=== PATIENT | male | born 1960 | race Two or more races ===

== ENCOUNTER 2022-07-26 09:12 | Outpatient (OUT) | payer OTHER, SELFPAY ==
--- NOTE | 2022-07-26 09:32 | XR_ITS ---
[address] [address] Patient Name: TOVA YOON MRN: [id number] date: 1960 Sex: M Assigned Patient Location: LAB Current Patient Location: LAB Accession/Order Number: [id number] Exam Date: 07/26/2022 09:40 Report Date: 07/26/2022 10:36 At the request of: SHAIKH MARJAN Procedure: XR lumbar spine 2-3V EXAM: XR lumbar spine 2-3V HISTORY: Low Back Pain M54.50 COMPARISON: None. TECHNIQUE: 3 views Findings/impression: Satisfactory alignment. Maintained vertebral body heights. Multilevel endplate degenerative changes, disc disease, and facet arthropathy of L3-S1. No acute fracture or subluxation. Scattered calcified atherosclerotic disease of aorta. Electronically authenticated by: LINDA SALMERON Date: 07/26/2022 10:36
[2022-07-26 09:35] LABS: Basophils Absolute Auto 0.1 10^3/uL (0.0-0.1); Basophils Percent Auto 1.2 % (0.2-2.0); Eosinophils Absolute Auto 0.6 10^3/uL (0.0-0.7); Eosinophils Percent Auto 10.8 % (0.9-7.0); Hematocrit 54.5 % (42.0-54.0); Hemoglobin 18.6 g/dL (14.0-18.0); Immature Granulocytes Abs Auto 0.02 10^3/uL (0.00-0.03); Immature Granulocytes Pct Auto 0.3 % (0.0-0.5); Lymphocytes Absolute Auto 0.9 10^3/uL (1.2-3.8); Lymphocytes Percent Auto 14.8 % (20.5-60.0); Mean Corpuscular HGB Conc 34.1 g/dL (29.9-35.2); Mean Corpuscular Hemoglobin 30.1 pg (25.9-34.0); Mean Corpuscular Volume 88.3 fL (80.0-94.0); Mean Platelet Volume 9.9 fL (9.5-13.5); Monocytes Absolute Auto 0.4 10^3/uL (0.3-0.8); Monocytes Percent Auto 7.1 % (1.7-12.0); Neutrophils Absolute Auto 3.9 10^3/uL (1.4-6.5); Neutrophils Percent Auto 65.8 % (43.0-75.0); Platelet Count 159 10^3/uL (150-450); Red Blood Count 6.17 10^6/uL (4.70-6.10); Red Cell Distribution Width 12.6 % (11.0-15.0)
[2022-07-26 10:44] LABS: Estimated Average Glucose 240 mg/dL
[2022-07-26 11:08] LABS: Alanine Aminotransferase 61 U/L (16-63); Albumin Globulin Ratio 0.9; Albumin Level 3.5 g/dL (3.4-5.0); Alkaline Phosphatase 75 U/L (46-116); Anion Gap 10.5; Aspartate Amino Transferase 33 U/L (15-37); BUN Creatinine Ratio 22.5; Bilirubin Total 0.7 mg/dL (0.2-1.0); Calcium 9.1 mg/dL (8.5-10.1); Carbon Dioxide 31.5 mmol/L (21.0-32.0); Chloride 98 mmol/L (98-107); Chol HDL Ratio 4.2; Cholesterol 191 mg/dL (<=200); Estimated GFR (African America >60 (>=60); Estimated GFR (Non-African Ame >60 (>=60); Glucose 244 mg/dL (74-106); HDL Cholesterol 45 mg/dL (40-60); LDL Cholesterol Calculated 119.2 mg/dL; Sodium 136 mmol/L (136-145); Total Protein 7.5 g/dL (6.4-8.2); Triglycerides 134 mg/dL (<=150); VLDL CHOLESTEROL 26.8 mg/dL
[2022-07-26 13:04] LABS: Creatinine Urine Random 129.12 mg/dL (20.00-300.00); Microalbum Creatinine Ratio Ur 173.4 mg/g (0.0-29.9); Microalbumin Urine Random 22.4 mg/dL (<=30.0)
== END 2022-07-26 09:13 ==
LOC: LAB 09:17
PROVIDERS: PCP Internal Medicine; Visit Provider Internal Medicine
DX: E11.9 Type 2 diabetes mellitus without complications (principal); Z13.220 Encounter for screening for lipoid disorders; M54.50 Low back pain, unspecified
CPT/HCPCS: 36415; 72100; 80053; 80061; 82043; 82570; 83036; 85025

== ENCOUNTER 2022-08-01 08:46 | Outpatient (RCR) | payer OTHER, SELFPAY | END 2022-08-25 13:39 | disposition home or self-care (01) | LOC: PT 08:46 | PROVIDERS: PCP Internal Medicine; Visit Provider Internal Medicine | DX: M54.50 Low back pain, unspecified (principal) | CPT/HCPCS: 97012; 97035; 97110; 97140; 97161; G0283 ==